=== PATIENT | female | born 1940 | race Caucasian/White ===

== ENCOUNTER → 2018-10-31 | Outpatient (CLI) | payer MEDICARE, OTHER | LOC: M.RAD 10-26 09:48 | DX: Z12.31 Encounter for screening mammogram for malignant neoplasm of breast (principal); I65.21 Occlusion and stenosis of right carotid artery; M85.88 Other specified disorders of bone density and structure, other site ==

== ENCOUNTER 2019-06-12 15:49 | Emergency (ER) | payer MEDICARE, OTHER ==
[~2019-06-12] VITALS: Ht 162.6 cm; Wt 74.8 kg
[2019-06-12] MEDS ORDERED: [UNRECOGNIZED DRUG - OTHER] (16:06)
[2019-06-12] MEDS ORDERED: HYDRALAZINE 2525 MG PO (16:06)
[2019-06-12] MEDS ORDERED: CLONIDINE HCL0.2 M2 PO (16:06)
[2019-06-12] MEDS ORDERED: OMEPRAZOLE 20 M20 M1 PO (16:07)
[2019-06-12] MEDS ORDERED: GEMFIBROZIL 60600 MG PO (16:07)
[2019-06-12] MEDS ORDERED: ASA81BEC PO (16:07)
[2019-06-12 17:29] VITALS: BP 175/69
== END 2019-06-12 17:32 | disposition home or self-care (01) ==
LOC: M.ERS 15:49
DX: S01.01XA Laceration without foreign body of scalp, initial encounter (principal); I10 Essential (primary) hypertension; K21.9 Gastro-esophageal reflux disease without esophagitis; Z88.5 Allergy status to narcotic agent; W11.XXXA Fall on and from ladder, initial encounter; Y92.89 Other specified places as the place of occurrence of the external cause; Y93.89 Activity, other specified; Y99.8 Other external cause status

== ENCOUNTER 2019-06-22 13:22 | Emergency (ER) | payer MEDICARE, OTHER ==
[~2019-06-22] VITALS: Ht 162.6 cm; Wt 74.8 kg
[~2019-06-22 13:22] MED LIST: ASA81BEC PO; CLONIDINE HCL0.2 M2 PO; GEMFIBROZIL 60600 MG PO; HYDRALAZINE 2525 MG PO; OMEPRAZOLE 20 M20 M1 PO; [UNRECOGNIZED DRUG - OTHER]
[2019-06-22 14:43] VITALS: BP 197/68
== END 2019-06-22 14:46 | disposition home or self-care (01) ==
LOC: M.ERS 13:22
DX: S01.01XD Laceration without foreign body of scalp, subsequent encounter (principal); I10 Essential (primary) hypertension; K21.9 Gastro-esophageal reflux disease without esophagitis; Z88.6 Allergy status to analgesic agent; X58.XXXD Exposure to other specified factors, subsequent encounter